=== PATIENT | male | born 1970 | race Caucasian/White ===

== ENCOUNTER → 2023-08-16 13:14 | Outpatient (REF) | payer OTHER, SELFPAY | LOC: RAD 13:14 | PROVIDERS: ATTENDING PHYSICIAN Nurse Practitioner Family | DX: R06.2 Wheezing (principal) | CPT/HCPCS: 71046 ==

== ENCOUNTER 2023-09-15 14:30 | Emergency (ER) | payer OTHER, SELFPAY ==
[2023-09-15 14:32] VITALS: BP 157/117
--- NOTE | 2023-09-15 15:08 | ED.GENMED ---
History of Present Illness
<Aminta Meza PA-C - Last Filed: 09/15/23 22:34>
General
Chief Complaint: Abdominal Pain
Source: patient
Exam Limitations: none
Time Seen by Provider: 09/15/23 15:03
Nursing documentation reviewed up to this point in time: agreed with
Travel History
Have you had any contact with someone who has COVID-19?: No
Do you have any symptoms of coronavirus? Fever > 100 degrees, chills, cough, shortness of breath, sore throat, loss of taste or smell, muscle aches, or headache?: No
History of Present Illness
History of Present Illness:
Patient is a 53-year-old male presenting to the emergency department for evaluation of abdominal pain. Patient states symptoms started approximately 3 days ago and have been consistent since. He describes a burning constant pain in his left lower
quadrant with intermittent sharp 'twinges '. He states pain is worse with movement. He also endorses some mild nausea. He has not had a bowel movement in 2 days. Patient denies any fever, chills, urinary symptoms, diarrhea, or vomiting. Patient
denies any testicular pain. Patient denies any blood in his stool or melena. Patient notices no relationship of pain with food. Patient does report noticing a much more mild version of this pain for many years which typically comes and goes.
Given this pain was more severe and remained constant he came to the emergency department for evaluation.
Patient reports noticing a lump in his left lower quadrant and is wondering if he has a hernia. He has no history of documented hernia on imaging.
Patient denies any history of abdominal surgeries.
Review of Systems
<Aminta Meza PA-C - Last Filed: 09/15/23 22:34>
Review of Systems
Allergies reviewed?: Yes
All Other Systems: ROS reviewed and negative except as documented in HPI and ROS
Phy Exam
<Aminta Meza PA-C - Last Filed: 09/15/23 22:34>
Physical Exam
Physical Exam:
Vitals: Hypertensive, mildly tachycardic, otherwise vital signs stable. Afebrile
General: Patient is in mild distress due to pain with movement, appears comfortable at rest. Nontoxic-appearing
Skin: Warm and dry, no rashes or lesions
Head: Normocephalic, atraumatic
Eyes: Sclera nonicteric. EOMs intact. No nystagmus.
Throat: Protecting airway
Neck: Normal ROM, no cervical spine tenderness, no meningismus
Cardiac: Regular rate and rhythm, no murmurs.
Pulm: Normal respiratory effort, no wheezes, rales, rhonchi heard on exam.
Abdomen: Abdomen soft. Mild to moderate abdominal tenderness in left lower quadrant/left inguinal region. No palpable masses. No rebound tenderness or guarding. No CVA tenderness bilaterally
: No tenderness of testicles. Normal testicular lie. No palpable hernia
Extremities: No evidence of cyanosis or edema. Good distal pulses
Neuro: AAOx3. CN II-XII intact. No focal neurologic deficits.
Psychiatric: Normal affect.
Course
<Aminta Meza PA-C - Last Filed: 09/15/23 22:34>
Orders/Labs/Results
Orders:
Orders
09/15/23 15:21
0.9% Sodium Chloride 1000 ml [Nss] 1,000 ml IV BOLUS
Ketorolac [Toradol] 15 mg IV NOW STA
09/15/23 15:22
CT Abd/Pel (IV only)-[facility] only Urgent
Comment:
Reason For Exam: LLQ abdominal pain
09/15/23 15:31
Complete Blood Count/With Diff Urgent
Comprehensive Metabolic Panel Urgent
Lipase Urgent
Comment: ADD ON
Urinalysis Reflex To Culture Urgent
Date Specimen was Collected: 09/15/23
Time Specimen was Collected: 15:26
Abnormal Lab Results
09/15/23
15:31
MCV 78.4 L fL
(80.0-94.0)
MPV 10.5 H fL
(7.4-10.4)
Absolute Neuts (auto) 7.1 H 10^3/uL
(1.4-6.5)
Urine Ketones 2+ A
(Negative)
09/15/23 15:31
09/15/23 15:31
Vital Signs
Initial and Last Documented VS:
Initial Vital Signs
Temp Pulse Resp BP Pulse Ox
98.1 F 108 20 157/117 98
09/15/23 14:32 09/15/23 14:32 09/15/23 14:32 09/15/23 14:32 09/15/23 14:32
Last Documented Vital Signs
Temp Pulse Resp BP Pulse Ox
98.1 F 102 16 140/92 99
09/15/23 14:32 09/15/23 18:45 09/15/23 18:45 09/15/23 18:45 09/15/23 18:45
<Sridhar Jenkins, DO - Last Filed: 09/15/23 19:57>
Orders/Labs/Results
Orders:
Orders
09/15/23 15:21
0.9% Sodium Chloride 1000 ml [Nss] 1,000 ml IV BOLUS
Ketorolac [Toradol] 15 mg IV NOW STA
09/15/23 15:22
CT Abd/Pel (IV only)-[facility] only Urgent
Comment:
Reason For Exam: LLQ abdominal pain
09/15/23 15:31
Complete Blood Count/With Diff Urgent
Comprehensive Metabolic Panel Urgent
Lipase Urgent
Comment: ADD ON
Urinalysis Reflex To Culture Urgent
Date Specimen was Collected: 09/15/23
Time Specimen was Collected: 15:26
Abnormal Lab Results
09/15/23
15:31
MCV 78.4 L fL
(80.0-94.0)
MPV 10.5 H fL
(7.4-10.4)
Absolute Neuts (auto) 7.1 H 10^3/uL
(1.4-6.5)
Urine Ketones 2+ A
(Negative)
09/15/23 15:31
09/15/23 15:31
Vital Signs
Initial and Last Documented VS:
Initial Vital Signs
Temp Pulse Resp BP Pulse Ox
98.1 F 108 20 157/117 98
09/15/23 14:32 09/15/23 14:32 09/15/23 14:32 09/15/23 14:32 09/15/23 14:32
Last Documented Vital Signs
Temp Pulse Resp BP Pulse Ox
98.1 F 102 16 140/92 99
09/15/23 14:32 09/15/23 18:45 09/15/23 18:45 09/15/23 18:45 09/15/23 18:45
<Aminta Meza PA-C - Last Filed: 09/15/23 22:34>
MDM/Problems Addressed
Differential Diagnosis Includes:
Not limited to: Constipation, diverticulitis, hernia, muscular strain, UTI, pyelonephritis, kidney stone, incarcerated hernia, do not suspect testicular torsion
MDM/Problems Addressed:
53-year-old male presenting for evaluation of left lower quadrant/left inguinal abdominal pain worsening over the past 3 days. He does state he has had this pain greater than 10 years intermittently. Pain worse with movement and associated with
mild nausea. No true testicular pain. Vital signs are stable, he is very mildly tachycardic. Patient is afebrile. Exam as above. He is relatively well-appearing, nontoxic appearing. He does have mild to moderate tenderness in the left lower
quadrant left inguinal region. No masses or hernias palpated. No tenderness to testicles bilaterally with normal testicular lie. Do not suspect torsion. Symptoms and exam somewhat nonspecific. Will check basic labs, lipase. Will check
urinalysis. Will get CT abdomen/pelvis. IV fluids and Toradol for pain. Will monitor closely and reassess.
4:20PM: In to reassess pt at bedside. Pain improved following toradol.
Labs resulted. No clinically significant abnormalities. White count upper limit of normal at 10.5. Lipase normal. Urine shows no evidence of infection or blood to suggest kidney stone. CT report reviewed without any acute findings. No evidence
of hernia or diverticulitis.
Workup here has been negative. Patient did have significant improvement following Toradol. It is possible this is a muscular strain. At this point patient stable for discharge with close return precautions. Recommend NSAIDs, adequate hydration,
primary care follow-up. Patient comfortable with plan. All questions answered.
Chronic conditions affecting care:
N/A
Acute Exacerbation and/or Progression of Chronic Illness:
N/A
<Aminta Meza PA-C - Last Filed: 09/15/23 22:34>
*Radiology
Radiology exam reviewed: preliminary read by ED provider and radiology read reviewed
*Pulse Oximetry
Patient hypoxic: no
*EKG
Interpreted by ED Provider?: NA
*Supervisor Spring Up Interpretation
Rate: Supervisor Spring Up- N/A
*Critical Care Note
Total Time (30-74mins, 75-104mins- exclusive of procedures): Not Applicable
ED Attending Note
<Aminta Meza PA-C - Last Filed: 09/15/23 22:34>
-
Portions of this chart may have been created with voice recognition software.� Occasional wrong word or��sound alike� substitutions may have occurred due to the inherent limitations of voice recognition software.
<Sridhar Jenkins DO - Last Filed: 09/15/23 19:57>
ED Attending Note
Patient seen and examined by attending physician: Yes
I performed a history and physical exam of patient and discussed management with resident, I reviewed resident's note and agree with documented findings and plan of care.: Yes
ED Attending Note:
I have reviewed and agree with patient treatment plan by Aminta Meza. My exam reveals 53-year-old male with mild left lower quadrant abdominal pain, no rebound or guarding. No hernia detected. CT abdomen pelvis no acute findings. Urinalysis
unremarkable. Patient stable for discharge. Follow-up with primary care
Discharge Plan
Departure
Patient Disposition: Home (Routine Discharge)
Date of Disposition: 09/15/23
Time of Disposition: 19:13
Patient with high blood pressure during this ER visit?: Yes
Condition: Good
Covid-19: Not Applicable
Discharge Problem:
Abdominal pain
Instructions: Abdominal Pain, Adult ED, BLOOD PRESSURE
Prescriptions:
No Action
dextroamphetamine-amphetamine [Adderall] 7.5 mg Tablet
7.5 mg PO DAILY
lisdexamfetamine [Vyvanse] 10 mg Capsule
10 mg PO DAILY
Referrals:
UNKNOWN - PT DOES,NOT KNOW [Family Provider] -
Activity Restrictions/Additional Instructions:
RETURN TO THE EMERGENCY DEPARTMENT WITH FEVERS, CHILLS, WORSENING ABDOMINAL PAIN, INTRACTABLE NAUSEA/VOMITING, SIGNIFICANT TESTICULAR PAIN, CHEST PAIN, SHORTNESS OF BREATH, WORSENING IN CURRENT SYMPTOMS, OR ANY OTHER CONCERNS
-We were not able to determine the exact cause of your abdominal pain today while in the emergency department. It is possible that it is a muscular strain
-You should take Motrin/Tylenol as needed for discomfort at home. It is important to stay well-hydrated.
-Is important to follow-up with your primary care provider in a few days to ensure symptoms are improving. Monitor your symptoms closely and return to the emergency department with any acute worsening or change in symptoms.
Interventions
Interventions:
*Risk Screen - Suicide Last Done: 09/15/23 14:32
*General Assessment Last Done: 09/15/23 14:32
*Neglect/Abuse Screening Last Done: 09/15/23 14:32
ED- Fall Risk Assessment Last Done: 09/15/23 15:22
*ED COVID-19 Vaccine History Last Done: 09/15/23 15:22
*Nursing Disposition Last Done: 09/15/23 18:45
YD-Ryfckl-Hdbknnchad Assessment Last Done: 09/15/23 15:22
Discharge Date and Time
Discharge Date/Time: 09/15/23 19:27
Print Language: JAPANESE
[2023-09-15 15:21] VITALS: BP 165/109
[2023-09-15 15:22] VITALS: BMI 29.6
[2023-09-15] MEDS: NSS 1000 IV (15:32)
[2023-09-15] MEDS: TORADOL 15 MG IV (15:35)
[2023-09-15 15:39] LABS: % Eosinophils 1.2 % (0-6); % Immature Granulocytes 0.3 % (0-0.5); % Lymphocytes 26.9 % (20.5-51.1); % Monocytes 3.4 % (1.7-9.3); % Neutrophils 67.2 % (42.2-75.2); Absolute Basophils 0.1 10^3/uL (0-0.2); Absolute Eosinophils 0.1 10^3/uL (0-0.7); Absolute Lymphocytes 2.8 10^3/uL (1.2-3.4); Absolute Monocytes 0.4 10^3/uL (0.1-0.6); Absolute Neutrophils 7.1 10^3/uL (1.4-6.5); Hematocrit 39.5 % (39.0-52.0); Hemoglobin 14.6 g/dL (13.0-18.0); Mean Corpuscular Volume 78.4 fL (80.0-94.0); Mean Platelet Volume 10.5 fL (7.4-10.4); Nucleated Red Blood Cells % 0 % (-); Platelet Count 257 10^3/uL (130-400); Red Blood Cell Count 5.04 10^6/uL (4.70-6.10); Red Cell Dist. Width 11.9 % (11.5-14.5); White Blood Cell Count 10.5 10^3/uL (4.8-10.8)
[2023-09-15 15:54] LABS: ALT (SGPT) 15 U/L (0-50); AST (SGOT) 21 U/L (17-59); Albumin 4.4 g/dl (3.5-5.0); Alkaline Phosphatase 101 U/L (38-126); Blood Urea Nitrogen 14 mg/dl (9-20); Calcium 9.4 mg/dl (8.4-10.2); Carbon Dioxide 23 mmol/L (22-30); Chloride 104 mmol/L (98-107); Estimated Creatinine Clearance 121 ml/min; Glucose 98 mg/dl (70-99); Lipase 110 U/L (23-300); Potassium 3.9 mmol/L (3.5-5.1); Sodium 137 mmol/L (135-145); Total Bilirubin 0.6 mg/dl (0.2-1.3); Total Protein 7.1 g/dl (6.3-8.2); eGFR > 60.00
[2023-09-15 16:00] VITALS: BP 146/96
[2023-09-15 18:39] LABS: Urine Albumin Negative (Neg - Trace); Urine Bilirubin Negative (Negative); Urine Character Clear (Clear); Urine Color Yellow; Urine Glucose Negative (Negative); Urine Ketone 2+ (Negative); Urine Leukocyte Negative (Negative); Urine Nitrite Negative (Negative); Urine Occult Blood Negative (Negative); Urine Urobilinogen Negative (Neg - 1+)
[2023-09-15 18:45] VITALS: BP 140/92
== END 2023-09-15 19:27 | disposition home or self-care (01) ==
LOC: EMR 14:30
PROVIDERS: Physician Assistant; EMERGENCY PHYSICIAN Emergency Medicine
DX: R10.32 Left lower quadrant pain (principal); R03.0 Elevated blood-pressure reading, without diagnosis of hypertension
CPT/HCPCS: 99285; 96374; 96361; 74177; 80053; 81003; 83690; 85025; Q9967

== ENCOUNTER → 2023-10-19 17:42 | Outpatient (REF) | payer OTHER, SELFPAY | LOC: PAVMRI 17:42 | PROVIDERS: ATTENDING PHYSICIAN Physician Assistant Medical | DX: R10.32 Left lower quadrant pain (principal); R10.2 Pelvic and perineal pain | CPT/HCPCS: 72195 ==